=== PATIENT | female | born 1950 | race Caucasian/White ===

== ENCOUNTER 2016-09-28 09:35 | Inpatient (IN) | payer OTHER ==
[~2016-09-28] VITALS: Ht 160 cm; Wt 56.4 kg
[~2016-09-28 09:35] MED LIST: APR20I PO; BG MC; CIPRO500 MG PO; ECO81 PO; ERYOO OD; INSULIN HUMA100 U/M1 SC; LEVEMIR100 U/M1 SQ; LOP50 PO; NOR5 PO; SER25 PO; ZES20 PO; ZOC20 PO
--- NOTE | 2016-09-28 09:50 | NUR ---
PT BIB [facility] WITH C/C OF DISLODGEMENT OF DIALYSIS PORT TO R UPPER CHEST. PORT NOTED TO HAVE BROKEN SUTURES WITH SUTURE HOLES APPROX 3 INCHES AWAY FROM SKIN. PT IS A&O TO PERSON AND PLACE. PT HAS HX OF DEMENTIA AND IS CONFUSED ABOUT DATE AND DISORIENTED ABOUT SITUATION. PT AWARE OF DIALYSIS PORT BEING PULLED BUT STS THAT SHE IS NOT SURE OF HOW THAT HAPPENED. PT FOLLOWS COMMANDS, CLEAR SPEACH. RESP EVEN AND UNLABORED, RA. NO C/O CHEST PAIN, ABD PAIN, OR SOB. PT DENIES PAIN TO PORT SITE, BUT REPORTS PAIN TO BLE AND B/L HIPS. FULL THICKNESS OPEN SORE NOTED TO SACRUM APPROX 2 IN DIAMETER AND DISCOLORED FEET. PT PLACED ON CLASSIFICATION AND TREATMENT DIRECTOR AND PULSE OX
--- NOTE | 2016-09-28 10:20 | NUR ---
DR BIRMINGHAM AT BEDSIDE FOR MSE
--- NOTE | 2016-09-28 10:23 | NUR ---
AUTO RESEARCH ENGINEER AT BEDSIDE FOR BLOOD DRAW
--- NOTE | 2016-09-28 10:34 | NUR ---
EMT AT BEDSIDE FOR EKG
--- NOTE | 2016-09-28 10:40 | NUR ---
RADIOLOGY AT BEDSIDE FOR PCXR
[2016-09-28 10:42] LABS: BASOPHIL % 0.5 % (0-2); PLATELET COUNT 246 x10^3mcL (130-400); RED CELL DISTRIBUTION WIDTH 13.6 % (11.5-14.5)
[2016-09-28 10:53] LABS: BILIRUBIN TOTAL 0.41 mg/dL (0.20-1.00); CALCIUM 8.9 mg/dL (8.5-10.1); CARBON DIOXIDE 31.3 mmol/L (21-32); PHOSPHOROUS 6.4 mg/dL (2.5-4.9); TOTAL PROTEIN, SERUM 6.9 g/dL (6.4-8.2); URIC ACID 4.5 mg/dL (2.6-6.0)
--- NOTE | 2016-09-28 11:01 | NUR ---
PT SLEEPING AT THIS TIME. RESP EVEN AND UNLABORED, RA. PT REMAINS HYPERTENSIVE. BUN/CREATININE CRITICAL, DR BIRMINGHAM MADE AWARE. NAD NOTED
[2016-09-28 11:02] LABS: ALBUMIN 2.7 g/dL (3.4-5.0)
[2016-09-28 11:07] LABS: CREATININE SERUM 5.2 mg/dL (0.6-1.0)
[2016-09-28] MEDS ORDERED: LIPI20 PO (11:18)
[2016-09-28] MEDS ORDERED: HYDRALAZINE HCL25 MG PO (11:18)
[2016-09-28] MEDS ORDERED: PHARMASSURE VI500 MG PO (11:20)
[2016-09-28] MEDS ORDERED: NEPHRO-VITE VITA1 EA PO (11:20)
--- NOTE | 2016-09-28 11:44 | NUR ---
MED STUDENT AT BEDSIDE SPEAKING WITH PT
--- NOTE | 2016-09-28 11:53 | NUR ---
REPORT GIVEN TO ERVIN REED IN [facility]ST FOR CONTINUITY OF CARE
[2016-09-28 12:16] LABS: T3 TOTAL 0.6 ng/mL
[2016-09-28 12:18] LABS: CHOLESTEROL/HDL RATIO 2.2
--- NOTE | 2016-09-28 12:21 | NUR ---
RECEIVED PATEINT FROM ER. ALERT/ORIENTED TO PERSON/PLACE, BUT CONFUSED AT TIMES. PATIENT WAS ESRD, HEMODIALYSIS. PULLED OUT CHET CATH 1 1/2 INCHS OUT FROM RT UPPER CHEST WALL. NO BLEEDING SEEN. TELE# 23 APPLIED. SR WITH BBB. HR = 63. DENIED CHEST PAIN. B/B INCONT. HAD BM TODAY. FORMED STOOL SEEN. GENERAL WEAKNESS. BED BOUND. AIR MATTRESS APPLIED. SKIN PRESSURE INJURY TO COCCYX AREA WITH 2CM TUNNEL. SCANT SEROSANGUINOUS DRAIANGE. WOUND CULTURE COLLECTED. HEALTING STAGE WOUND TO RT FOOT, BUILDING INSPECTOR. PATIENT YELLING AND C/O PAIN OF LEGS ON REPOSITION ONLY. NO C/O PAIN ON RESTING. IVHL'D TO L HAND, CALL LIGHT IN REACH.
[2016-09-28 12:25] LABS: FREE T4 1.08 ng/dL (0.76-1.46); FREE THYROXINE INDEX 2.3 ug/dL (1.4-4.5); T4(THYROXINE) 6.4 ug/dL (4.7-13.3)
[2016-09-28] MEDS ORDERED: PROCARDIA XL90 MG PO (12:30)
[2016-09-28 12:36] VITALS: BP 198/93
--- NOTE | 2016-09-28 16:07 | NUR ---
B/P = 198/93; HR = 65; ORDER OF ADALAT 90MG PO GIVEN. CONTINUE MONITOR.
[2016-09-28 17:23] VITALS: BP 211/90
--- NOTE | 2016-09-28 18:10 | NUR ---
RECHECKED B/P= /; HR = 65' DR. FALCON NOTIFIED. NEW ORDER OF HYDRALAZINE 10MG IVP GIVEN.
--- NOTE | 2016-09-28 19:10 | NUR ---
RECEIVED REPORT FROM DAY SHIFT RN. PT RESTING IN SEMI RIOS'S POSITION. IV ON LEFT HAND, SALINE LOCK. PT SLEEPY BUT AROUSABLE. NO C/O PAIN AT THIS TIME. BREATHING EVEN AND UNLABORED. AIR MATTRESS IN PLACE. SIDE RAILS UP X2. BED IN LOWEST POSITION. DEMONSTRATED HOW TO CALL IF ASSISTANCE IS NEEDED. CALL LIGHT WITHIN REACH.
--- NOTE | 2016-09-28 19:20 | NUR ---
B/P = 139/59 ; P =76. ENDORSED CARE TO NOC NURSE.
[2016-09-28 19:25] VITALS: BP 139/59
[2016-09-28 21:13] VITALS: BP 136/76
--- NOTE | 2016-09-29 03:47 | NUR ---
PT STATES "FEELING ITCHY ALL OVER", MEDICATED WITH BENADRYL X1. WILL CONTINUE TO MONITOR.
--- NOTE | 2016-09-29 04:25 | NUR ---
PT SLEEPING. BREATHING EVEN AND UNLABORED. NO DISTRESS NOTED.
--- NOTE | 2016-09-29 05:06 | NUR ---
PT SLEPT AT SHORT INTERVALS. PT STATES "NOT SLEEPY SINCE SHE SLEPT DURING THE DAY". C/O LEG PAIN ONLY WHEN REPOSITIONING. NO C/O PAIN WHILE AT REST. EPISODES OF CONFUSION. REORIENTED PT. SAFETY MEASURES MAINTAINED. ALL NEEDS ATTENDED TO. CALL LIGHT WITHIN REACH.
[2016-09-29 06:17] VITALS: BP 145/37
[2016-09-29 06:41] LABS: BASOPHIL % 0.9 % (0-2); PLATELET COUNT 241 x10^3mcL (130-400); RED CELL DISTRIBUTION WIDTH 13.9 % (11.5-14.5)
[2016-09-29 07:02] LABS: CARBON DIOXIDE 26.6 mmol/L (21-32); MAGNESIUM 2.1 mg/dL (1.8-2.4); POTASSIUM SERUM 4.1 mmol/L (3.5-5.1)
--- NOTE | 2016-09-29 08:00 | NUR ---
RECEIVED PT IN BED.ASSESSED AND DOCUMENTED. DENIES ANY PAIN THIS TIME. SAFTEY PRECAUTIONS ON. WILL MONITOR. PT IS ON LOW AIR MATTRESS. REPOSITIONING Q2HR.
[2016-09-29 08:34] VITALS: BP 145/37
[2016-09-29 09:22] VITALS: BP 129/66
--- NOTE | 2016-09-29 10:00 | NUR ---
CALLED AND INFORMED ABOUT PHOS LEVEL IS 7 AND ALSO INFORMED HIM PT C/O ITCHING IN THE BACK ,NOT HELPING WITH LOTION. HE SAID HE WILL ORDER MEDICATION. WILL MONITOR.
[2016-09-29 10:12] VITALS: Ht 160 cm; Wt 56.4 kg
[2016-09-29 13:20] VITALS: BP 140/56
--- NOTE | 2016-09-29 14:37 | NUR ---
Initial Nutrition Assessment Dx: Right tunneled catheter dislodgement- ESRD on HD PMHx: diabetes mellitus with neuropathy and retinopathy, alzheimers dementia, CHF, arthirits, HLD, HTN, GERD, ESRD with dialysis (M, W, F at [facility] at 2pm), psychosis, anemia, asthma PSHx: dialysis catheter placement Labs: K+ 4.1, BG 115H, BUN 54H, Cr 6H, Phos 7H, A1C 5.1, H/H 10.7/33L Meds: colace, D50, humulin R, nephro-alyssia, phoslo, theragran, vitamin C 500mg daily, zofran Current Diet Order: Renal (09/28) PO Intakes: 20% B, ?% L (09/29) Ht: 160.02cm,63". Wt: 124lbs, 56.44kg. BMI: 22 kg/m2 (Normal) IBW:115 lb, 52.2 kg. %IBW: 108%. UBW: unable to obtain Age: 66 Y/O F Food Allergies: NKFA Skin: stage IV decubitus ulcer to coccyx, healing wound to RT foot. Luis F:13 Edema: None noted GI:abd soft and flat, bowel sounds active . Last BM:1 formed (09/29) RN Trigger: appears underweight/malnourished, admitted w/ potential risk dx Pt admitted w/ Right tunneled catheter dislodgement- ESRD on HD, seen at bedside w/ no family present, pt was mildly lethargic but open to talk to RD, reports eating lunch but unsure of how much she ate, the RD offered novasource renal to pt, pt was open to drinking, the RD left renal and DM diet educational materials on table, the RD spoke to MILKING MACHINE OPERATOR, reports the pt ate very well for lunch- consumed 100% of tray, the pt is blind and needs max assist w/ feeding, has teeth but likes to eat food chopped in little pieces, no BM during shift- denies other GI issues, did not see any signs of chewing/swallowing difficulty. Problem with: N: None. V: None. D: none. C: None. Problem with: Chewing: None. Swallowing: None. Current Appetite: Good Recent Weight Change: unable to assess. % Weight Change: unable to assess Vitamin/Supplement Use: nephro-alyssia, vitamin C 500mg daily as per paper chart Diet at Home: Mechanical Soft Chopped Renal w/ Nepro 1 can BID w/ lunch and dinner as per paper chart Physical Activity: none Education: none, pt w/ alzheimers dementia Estimated Nutritional Needs Based on CBW 124 lb, 56.44kg Energy: 8784-4491 kcal/day (30-35 kcal/kg for ESRD on HD, Wound Healing) Protein: 85-113 g/day (1.5-2 g/kg for ESRD on HD, Wound Healing) Fluid: output + 750 ml/day (for ESRD on HD, CHF) or per MD Nutrition Diagnosis 1. Increased protein/energy needs related to impaired skin integrity as evidenced by pt w/ stage IV decubitus ulcer to coccyx 2. Inadequate protein/energy intake related to decreased appetite 2/2 general malaise and Alzheimers dementia as evidenced by pt meeting 20-100% of needs Intervention 1. Mechanical Soft Chopped Renal diet w/ CCHO 60gm and Novasource renal (950kcals, 44g protein) BID. Make food preferences known. 2. D/C Theragran. 3. Adjust Phoslo PRN 4. Daily wts to assess trends. Monitor/Evaluate Goal: PO intakes to meet >/= 50-75% of estimated needs via meals and Novasource renal BID Monitor: PO intakes/tolerance, labs, skin integrity, GI function, wt F/U in 3-5 days as MODERATE risk (4-4/)
--- NOTE | 2016-09-29 14:43 | NUR ---
1. Mechanical Soft Chopped Renal diet w/ CCHO 60gm and Novasource renal (950kcals, 44g protein) BID. Make food preferences known. 2. D/C Theragran. 3. Adjust Phoslo PRN 4. Daily wts to assess trends.
--- NOTE | 2016-09-29 15:55 | NUR ---
CALLED AND INFORMED ABOUT COCCYX WOUND CULTURE RESULT. HE SAID HE WILL CHECK.
--- NOTE | 2016-09-29 18:40 | NUR ---
INFORMED ABOUT PT BP 160/62. NO SYMPTOMS OF SEVERE HYPERTENSION NOTED.DENIES HEADACHE. SAID JUST GIVE THE NIGHT BID BP MED AT 1999. [facility] MANA[facility] APPLE NURSE.
[2016-09-29 18:41] VITALS: BP 160/62
--- NOTE | 2016-09-29 19:00 | NUR ---
PT RESTING IN BED COMFORTABLY.DENIES ANY PAIN. GAVE REPORT TO PHLEBOTOMY SPECIALIST NURSE.
--- NOTE | 2016-09-29 19:47 | NUR ---
RECEIVED REPORT FROM DAY SHIFT RN. PT RESTING IN SEMI RIOS'S POSITION. NO DISTRESS NOTED. AIR MATTRESS IN PLACE. SIDE RAILS UP X2. BED IN LOWEST POSITION. IV ON LEFT HAND, SALINE LOCK. CHET CATH PARTIALLY PULLED, COVERED WITH DRESSING. DEMONSTRATED HOW TO CALL IF ASSISTANCE IS NEEDED. CALL LIGHT WITHIN REACH.
[2016-09-29 20:42] VITALS: BP 129/50
[2016-09-30 05:23] VITALS: BP 155/63
--- NOTE | 2016-09-30 06:45 | NUR ---
PT SLEPT AT LONG INTERVALS. NO C/O PAIN AT REST. REORIENTED PT NEEDED. SAFETY MEASURES MAINTAINED. SCD'S IN PLACE. PT REFUSED BLOOD GLUCOSE CHECK THIS MORNING. CALL LIGHT WITHIN REACH. WILL ENDORSE CONTINUITY OF CARE TO ONCOMING RN.
--- NOTE | 2016-09-30 08:00 | NUR ---
RECEIVED PT IN BED.ASSESSED AND DOCUMENTED.DENIES ANY PAIN.ON LOW AIR MATTRESS. GAVE REPORT TO NEXT SHIFT NURSE.
[2016-09-30 09:40] VITALS: BP 147/59
--- NOTE | 2016-09-30 13:00 | NUR ---
CALLED AND INFORMED ABOUT PT REFUSING BLOOD DRAW.RN TALK TO THE PT AND EXPLAINED THE IMPORTANCE OF LAB BUT PT STILL REFUSED. LAB STAFF CAME BACK AND TRY TO TALK TO HER AGAIN BUT SHE STILL REFUSED. DR. FALCON CAME AND TALK TO THE PT MULTIPLE TIME, FINALLY SHE AGREED AND LAB DRAWN BLOOD. ALSO INFORMED IS BEEN RECENTLY RESPONDING REALLY SLOW AND SLEEPY. NO PAIN MEDICATIONS GIVEN BUT CANVAS BASTER JUMPBASTING GAVE HER BATH AND SHAMPOOED HER HEAD. CHECKED PT. WILL CONTINUE MONITOR.
[2016-09-30 13:09] VITALS: BP 151/69
[2016-09-30 14:37] LABS: BASOPHIL % 0.9 % (0-2); PLATELET COUNT 221 x10^3mcL (130-400); RED CELL DISTRIBUTION WIDTH 13.9 % (11.5-14.5)
[2016-09-30 14:44] LABS: CALCIUM 8.8 mg/dL (8.5-10.1); CARBON DIOXIDE 27.5 mmol/L (21-32); MAGNESIUM 2.3 mg/dL (1.8-2.4); PHOSPHOROUS 7.6 mg/dL (2.5-4.9); POTASSIUM SERUM 4.5 mmol/L (3.5-5.1)
--- NOTE | 2016-09-30 14:55 | NUR ---
INFORMED PT'S BUN/CREAT=71/7 AND PHOS 7.6. NO NEW ORDER RECEIVED THIS TIME.
--- NOTE | 2016-09-30 16:50 | NUR ---
INFORMED ABOUT PT REFUSING BLOOD SUGAR. EXPALINED THE PURPOSE AND TRY TO TALK TO PT MULTIPLE TIME BUT PT STILL REFUSING. PT'S MOTHER WAS HERE AND REQUESTED FOR TO CALL AND LET HER KNOW BLOOD SUGAR. CALLED MOTHER AND LEFT MESSAGE,NOT ANSWERED.
--- NOTE | 2016-09-30 17:45 | NUR ---
PT EATING DINNER.AWAKE AND MORE ALERT AND ORIENTED X2 BUT STILL HAS SOME CONFUSION. WILL MONITOR.
[2016-09-30 18:50] VITALS: BP 138/67
--- NOTE | 2016-09-30 19:00 | NUR ---
PT RESTING IN BED COMFORTABLY. DENIES ANY PAIN. SAFTEY PRECAUTIONS ON. GAVE REPORT TO NEXT SHIFT NURSE.
--- NOTE | 2016-09-30 19:30 | NUR ---
RECEIVED REPORT FROM DAY SHIFT RN. SLEEPY BUT AROUSABLE. ORIENTED TO PERSON AND PLACE. REORIENTED TO TIME. IV ON LEFT HAND, SALINE LOCK. AIR MATTRESS AND SCD'S IN PLACE. BED IN LOWEST POSITION. SIDE RAILS UP X2. CALL LIGHT WITHIN REACH.
[2016-09-30 21:52] VITALS: BP 127/93
[2016-10-01] VITALS (7 sets, daily range): BP systolic 139–177; BP diastolic 57–76
[2016-10-01 06:55] LABS: PLATELET COUNT 223 x10^3mcL (130-400); RED CELL DISTRIBUTION WIDTH 14.3 % (11.5-14.5)
--- NOTE | 2016-10-01 07:00 | NUR ---
PT SLEPT ON AND OFF DURING SHIFT. NO C/O PAIN. NO DISTRESS NOTED. CONFUSED AT TIMES, REORIENTED NEEDED. SAFETY MEASURES MAINTAINED. CALL LIGHT WITHIN REACH. WILL ENDORSE CONTINUITY OF CARE TO ONCOMING RN.
[2016-10-01 07:13] LABS: CALCIUM 8.9 mg/dL (8.5-10.1); MAGNESIUM 2.4 mg/dL (1.8-2.4); PHOSPHOROUS 7.6 mg/dL (2.5-4.9); POTASSIUM SERUM 4.6 mmol/L (3.5-5.1)
--- NOTE | 2016-10-01 07:58 | NUR ---
PATIENT IS AWAKE ORIENTED TO PERSON AND PLACE. PULSES EQUAL BILATERAL. NO EDMEA NOTED. LUNGS CTA, PT RESTING ON RA. BOWEL SOUNDS ACTIVE IN ALL 4 QUADRANTS. INCONTINENT AT TIMES. BED BOUND, LEGS CONTRACTED, PAIN ON MOVEMENT. WOUNDS TO COCCYX, AND HEALING WOUND TO R FOOT. NO C/O PAIN AT THIS TIME. IV TO THE LH PATENT AND INFUSING. CALM AND COOPERATIVE AT THIS TIME. CALL LIGHT IN REACH WILL CONTINUE TO MONITOR.
[2016-10-01 08:28] LABS: CREATININE SERUM 7.8 mg/dL (0.6-1.0)
--- NOTE | 2016-10-01 09:48 | NUR ---
LEFT MESSAGE FOR JULIANO PTS DAUGHTER.
--- NOTE | 2016-10-01 09:51 | NUR ---
SPOKE TO PTS SON ELIA, GOT CONSENT VERIFIED WITH TWO RNS.
--- NOTE | 2016-10-01 10:05 | NUR ---
PT OFF THE FLOOR IN PROCEDURE.
--- NOTE | 2016-10-01 12:48 | NUR ---
PT BACK ON THE FLOOR VS STABLE WILL CONTINUE TO MONITOR.
--- NOTE | 2016-10-01 13:37 | NUR ---
INFORMED DR WEBSTER REGARDING PTS PAIN, AWATING ORDERS
--- NOTE | 2016-10-01 14:12 | NUR ---
PT RECEIVED MEDICATION PER. WILL CONTINUE TO MONOTOR PAIN STATUS.
--- NOTE | 2016-10-01 14:15 | NUR ---
PT GETTING DIALIZED.
--- NOTE | 2016-10-01 15:30 | NUR ---
PT GETTING DIALIZED.
--- NOTE | 2016-10-01 17:21 | NUR ---
PT GETTING DIALIZED.
--- NOTE | 2016-10-01 18:09 | NUR ---
ATTEMPTED TO TAKE PTS BP PT PULLED AWAY AND SAID NO WILL TRY AGAIN.
--- NOTE | 2016-10-01 18:37 | NUR ---
DR WEBSTER MADE AWARE OF PTS SWELLING TO BUE AND BLE. STATED TO DC FLUIDS.
--- NOTE | 2016-10-01 18:53 | NUR ---
PT RESTING COMFORTABLY IN BED NO ACUTE CHANGES, PT ABLE TO MAKE NEEDS KNOWN. EVEN UNLABORED RESPIRATIONS. NO ACUTE CHANGES. WILL ENDORCE TO ILLUSIONIST NURSE.
--- NOTE | 2016-10-01 20:00 | NUR ---
RECEIVED PT IN BED AWAKE, ALERT AND ORIENTED X2. PT IS CONFUSED AT TIMES. WEAK PEDAL PULSES , NO EDEMA NOTED. LUNGS CLEAR AND ON ROOM AIR. BOWEL SOUND ACTIVE. PT IS HD PATIENT AND VOIDS VERY LITTLE. PT IS BED BOUND WITH GENERALIZED WEAKNESS. AIR MATTRESS IN PLACE. RIGHT LEG CONTRACTED. STAGE 4 TO THE COCCYX AREA. WOUND CLEANSED AND DRESSING CHANGED. NO C/O PAIN NOTED AT THIS TIME. TUNNELED CATH NOTED TO THE RIGHT UPPER CHEST. CLEAN DRY AND INTACT. IV HL TO THE LEFT HAND 22G, NO SWELLING OR INFILTRATION NOTED. NO ACUTE DISTRESS NOTED. RESPIRATIONS EVEN AND UNLABORED. NO C/O SOB NOTED. INSTRUCTED PT TO USE CALL LIGHT IF NEEDS ASSISTANCE WITH ANYTHING. CALL LIGHT WITHIN REACH. WILL CONTINUE TO MONITOR.
--- NOTE | 2016-10-01 23:40 | NUR ---
PT SLEEPING AT THIS TIME. NO DISTRESS NOTED. NO SIGNS OF PAIN. IV INTACT. WILL CONTINUE TO MONITOR PT.
--- NOTE | 2016-10-02 02:30 | NUR ---
NO DISTRESS NOTED. PT RESTING COMFORTABLY AT THIS TIME. WILL MONITOR.
[2016-10-02 05:31] VITALS: BP 174/72
--- NOTE | 2016-10-02 05:53 | NUR ---
PT CONTINUES TO REST IN BED AT THIS TIME. NO DISTRESS NOTED. IV INTACT. NO REDNESS OR SWELLING NOTED. PT STABLE AT THIS TIME. WILL ENDORSE TO THE A.M SHIFT NURSE.
[2016-10-02 05:54] LABS: PLATELET COUNT 215 x10^3mcL (130-400)
[2016-10-02 06:13] LABS: CALCIUM 8.5 mg/dL (8.5-10.1); CARBON DIOXIDE 28.7 mmol/L (21-32); MAGNESIUM 1.8 mg/dL (1.8-2.4); PHOSPHOROUS 5.1 mg/dL (2.5-4.9); POTASSIUM SERUM 3.5 mmol/L (3.5-5.1)
[2016-10-02 06:21] LABS: CREATININE SERUM 4.5 mg/dL (0.6-1.0)
--- NOTE | 2016-10-02 06:59 | NUR ---
NITROGLYCERIN GIVE TO PATIENT AT THIS TIME FOR BP OF 174/72 WILL ENDORSE TO THE A.M SHIFT AND BP WILL BE MONITORED. EDUCATED PT REGARDING THIS MEDICATION AND PT VERBALIZES AN UNDERSTANDING.
--- NOTE | 2016-10-02 09:06 | NUR ---
ADMINISTERED MORNING MEDICATIONS TO PT, OPENED THE MEDICATIONS AND PUT IN MEDICINE CUP, PT TOOK KAREN HALF OF MEDICATIONS AND THEN BEGAN YELLING SAYING HER WATER WAS FROZEN AND SHE WANTED HOT WATER. WILL TRY AND FINISHED ADMINISTERING THE REST OF MORNING MEDICATIONS.
[2016-10-02 09:38] VITALS: BP 180/77
[2016-10-02 11:23] VITALS: BP 171/57
--- NOTE | 2016-10-02 11:27 | NUR ---
GAVE THE PT THE REST OF HER MORNING MEDICATIONS, WILL REASSESS BLOOD PRESSURE.
[2016-10-02 12:17] VITALS: BP 174/64
--- NOTE | 2016-10-02 12:48 | NUR ---
CONSENT WAS OBTAINED FROM PTS SON ELIA THOMAS, CONSENT WAS OBTAINED OVER THE PHONE, VERIFIED WITH ANOTHER RN, CONSENTS SIGNED AND IN THE CHART.
[2016-10-02 17:00] VITALS: BP 140/60
--- NOTE | 2016-10-02 17:45 | NUR ---
PHOTOS PRINTED FROM DEBRIDEMENT, DR WEBSTER MADE AWARE OF NEED FOR SIGNATURE.
--- NOTE | 2016-10-02 19:10 | NUR ---
CARE ENDORCED TO RN INTERNATIONAL NURSE, NO ACTE CHANGES PT STABLE.
--- NOTE | 2016-10-02 19:30 | NUR ---
RECEIVED BEDSIDE REPORT. SEEN PATIENT ASLEEP ON HER LEFT SIDE. BREATHING EASY AND EVEN NOTED ON ROOM AIR. S/P WOUND DEBRIDEMENT TO COCCYX AT PREVIOUS SHIFT. CHET CATH TO RIGHT CHEST WALL WITH DRSG CDI. S/L TO LT HAND INTACT. ON AIR MATTRESS. BED RIDDEN, LEGS CONTRACTED. WILL CONTINUE REPOSITION Q 2HRS. ON CONTACT ISOLATION FOR MDRO. BED ALARM ON. CALL LIGHT PLACED WITHIN REACH. SIDERAILS UP X3. WILL CONTINUE TO MONITOR.
--- NOTE | 2016-10-02 19:31 | NUR ---
ENDORCED TO TRACTOR TRAILER TECHNICIAN NURSE THAT PT WOULD BE GETTING HD TOMORROW, AND THAT WOUND DEBRIDEMENT HAD BEEN DONE TODAY AND DRESSING CHAGE IS NEW.
[2016-10-02 22:00] VITALS: BP 127/58
--- NOTE | 2016-10-02 23:00 | NUR ---
AWAKE AND WANTED TO USE THE BATHROOM NOTED PATIENT INCONTINENCE URINE TO ABSORBANT PAD, ADRYAN AREA CLEANED AND LINEN CHANGED. ASSISTED WITH DINNER, ABLE TO FINISH 100% OF RENAL DIET. FORGETFUL AT TIMES, PLEASANT AT THIS TIME. BED TIME MEDS GIVEN. REPOSITIONED. DRESSING TO COCCYX CDI.
--- NOTE | 2016-10-03 05:21 | NUR ---
NO ACUTE DISTRESS THROUGHOUT THE SHIFT. VSS. ULTRAM PO GIVEN X1 FOR NECK PAIN WITH GOOD RELIEF. INCONTINENCE URINE, VOIDED X1. DUE FOR HEMODIALYSIS TODAY. CHET CATHETER TO RIGHT CHEST WALL WITH DRSG CDI. REPOSITIONED Q 2HRS. S/L TO LT HAND INTACT AND PATENT.
[2016-10-03 06:19] VITALS: BP 137/57
--- NOTE | 2016-10-03 06:47 | NUR ---
PATIENT REFUSED AM BLOOD DRAW AND DOCTOR TERRIE MADE AWARE.
[2016-10-03 07:34] LABS: CALCIUM 8.7 mg/dL (8.5-10.1); CARBON DIOXIDE 29.8 mmol/L (21-32); MAGNESIUM 2.1 mg/dL (1.8-2.4); PHOSPHOROUS 6.8 mg/dL (2.5-4.9); POTASSIUM SERUM 3.6 mmol/L (3.5-5.1)
[2016-10-03 07:36] LABS: CREATININE SERUM 5.7 mg/dL (0.6-1.0)
[2016-10-03 07:40] LABS: BASOPHIL % 1.5 % (0-2); PLATELET COUNT 208 x10^3mcL (130-400); RED CELL DISTRIBUTION WIDTH 13.6 % (11.5-14.5)
--- NOTE | 2016-10-03 08:00 | NUR ---
RECEIVED PATIENT AWAKE AND VERY SHORT WITH STAFF AND ALMOST PARANOID DOUNDING. SHE WANTS TO KNOW WHY THE NURSE IS AT BEDSIDE AND SHE HAS INTERMITTANT PAIN AAND SHE FEELS THE STAFF SHOULD KNOW THIS AND GIVE THE MEDICAIONS ORDERED. PATIENT HAS BEEN AGIATED SINCE STAFF ARRIVE AND DOES NOT APPEAR TO HAVE ALL HER MEMORY INTACT AND IS FORGETFUL OF WHERE SHE IS AND SHE HAS BEEN COMPLAINING PEOPLE ARE NOT TALKING LOUD ENOUGH FOR HER TO HEAR AND THAT SHE FEELS THAT PEOPLE ARE DIRECTING THEMSELVES TO HER. VITALS AT THIST GIACOMO AT 98.5, 59, 18, 137/57, 96% ON ROOM AIR. PATIENT HAS BEEN ON HHN TREATMENTS AND LUNGS ARE WITH SOME FINES AND NO COUGH NOTED AND PATIENT HAS BEEN ON ROCPHEIN AND NO ADVSER REACTION NOED. NOTED LABS ARE WITH H AND H OF 9.5/29, LYMPH21.4, BUN AT 45.0, CREANTININES AT 5.7.
--- NOTE | 2016-10-03 08:30 | NUR ---
SEEN BY THE INTERNS AND DR ELDER AND PLAN OF CARE DISCUSSED. PATIENT IS FOR [facility] EVAL AND POSSIBLE DISCHARGE TO SNF TOMORROW. PATEITN FOR DIALYSIS TODAY PER REPORT. HELD THE BP MEDICAIOTNS INDICATED.
--- NOTE | 2016-10-03 09:40 | NUR ---
REQUESTED PAIN MEDICATION BUT IS NOT ACCEPTING ALL MEDICATIONS AT THIS TIME. SHE AGREED TO TAKE ONLY FOUR OF THE MEDICATIONS OFFERED WITH THE PAIN MEDICATION ULTRAM. GAVE ULTRAM ORDERED FOR HIP PAIN AND WILL MONITOR FOR EFFECTIVENESS. PATIENT HAS HER BP MEDICATION ON HOLD PER REPORT FOR POST DIALYSIS
[2016-10-03 09:45] VITALS: BP 145/58
--- NOTE | 2016-10-03 09:54 | NUR ---
SEEN BY THE INERNS AND PLAN OF CARE DISCUSSED.
--- NOTE | 2016-10-03 11:30 | NUR ---
PATIENT REFUSED BLOOD SUGAR TESTING AND THEN SHE REFUSED THE MEDICATIONS ALSO. SHE DOES NOT SEEM TO BE PARTICULAR ON HER REASONS FOR REFUSAL. THIS TIME SHE STATES SHE DOES NOT WANT TO TAKE MEDICATIONS ON AN EMPTY STOMACH. EARLIER SHE DID NOT WANT TO TAKE SO MANY.
--- NOTE | 2016-10-03 13:45 | NUR ---
GAVE THE MEDICATION LEFT OVER FROM THE AM AND THE NOON MEDICATIONS SHE HAD REFUSED EARLIER TO TAKE. PATIENT NOW WANTS ICELANDIC FRIES. STAFF IS SURE THIS IS NTO PART OF THE RENAL DIABETIC DIET. WILL REQUEST ON THE PATIENTS BEHALF DESPITE A REFUSAL IS EXPECTED BY THE DIETARY DEPTMENT.
--- NOTE | 2016-10-03 13:53 | NUR ---
REQUESTED RENAL/DIABETIC DIET SNACK FOR THE PATIENT.
--- NOTE | 2016-10-03 13:54 | NUR ---
GAVE THE ROUND THE CLOCK PAIN MEDICATION AND STARTED THE ANCEF TWO GRAMS ORDERED. FAMILY AT BEDSIDE AND SUPPORTIVE WITH CARE.
--- NOTE | 2016-10-03 16:30 | NUR ---
PATIENT ON DIALYSIS AT THIS TIME. PATIENT COMPLAINS OF ITCHNESS AND MEDICATION GIVEN AND EFFECTIVE.
[2016-10-03 17:45] VITALS: BP 163/65
--- NOTE | 2016-10-03 19:40 | NUR ---
REC'D PT FROM DAY SHIFT NURSE. PT AAOX3, REORIENTED TO TIME AND SURROUNDINGS. FORGETFUL. ABLE TO VERBALIZE NEEDS. FOLLOWS COMMANDS. GENERALIZED WEAKNESS WITH LIMITED ROM TO RLE. DIALYSIS TAKING PLACE. 1.6 L OUT VIA CHET TO R UPPER CHEST, SITE WNL. NO COMPLAINTS AT THIS TIME, "JUST TIRED OF LAYING HERE." NO SIGNS OF DISTRESS NOTED. BREATHING EVEN/UNLABORED. MED SURG PT- DENIES CP, DIZZINESS, OR PALPITATIONS. CALL LIGHT WITHIN REACH, BED AT LOWEST POSITION, BED ALARM ON. WILL CONTINUE TO MONITOR.
--- NOTE | 2016-10-03 19:47 | NUR ---
CONTINUED ON DIALYSIS AND PLANS TO REMOVE 1.5 LITERS TODAY. PATIENT CALM AT THIS TIME. WILL ENDORSE TO THE NEXT SHIFT INDICATED. DID NOT RECEIVE THE BP MEDICATIONS DIRRECTED OR RECEIVE THE ROCPHIN.
[2016-10-03 20:44] VITALS: BP 183/76
--- NOTE | 2016-10-03 21:00 | NUR ---
DIALYSIS COMPLETED. PT TOLERATED WELL. BP ELEVATED 183/76, MAP 118, HR 73. WILL GIVE DUE ANTIHYPERTENSIVE MEDS.
--- NOTE | 2016-10-03 21:47 | NUR ---
DUE MEDS GIVEN. PT STATED SHE WANTS TO LEAVE AFTER EATING DINNER. INFORMED PT SHE HAS JUST COMPLETED DIALYSIS AND IT ISN'T SAFE FOR HER TO LEAVE RIGHT NOW. SHE WILL NEED TO STAY AT LEAST ONE MORE NIGHT AND DOCTORS WILL INFORM HER IN THE MORNING IF SHE WILL GET DISCHARGED. PT KEPT INSISTING SHE WILL GO HOME TONIGHT. REINFORCED SHE NEEDS TO STAY FOR OBSERVATION. PT VERBALIZED UNDERSTANDING AND IS WATCHING TV, LAYING COMFORTABLY IN BED. WILL CONTINUE TO MONITOR
--- NOTE | 2016-10-04 03:20 | NUR ---
PT RESTING IN BED WITH EYES CLOSED. LAYING LOW RIOS'S POSITION. NO SIGNS OF DISTRESS NOTED. BREATHING EVEN/UNLABORED. CALL LIGHT WITHIN REACH, BED AT LOWEST POSITION. WILL CONTINUE TO MONITOR.
[2016-10-04 06:08] LABS: PLATELET COUNT 211 x10^3mcL (130-400); RED CELL DISTRIBUTION WIDTH 13.8 % (11.5-14.5)
[2016-10-04 06:16] VITALS: BP 192/74
[2016-10-04 06:40] LABS: CALCIUM 8.8 mg/dL (8.5-10.1); CARBON DIOXIDE 30.7 mmol/L (21-32); CREATININE SERUM 3.3 mg/dL (0.6-1.0); MAGNESIUM 1.9 mg/dL (1.8-2.4); PHOSPHOROUS 4.3 mg/dL (2.5-4.9); POTASSIUM SERUM 3.7 mmol/L (3.5-5.1)
--- NOTE | 2016-10-04 06:41 | NUR ---
PT AGITATED. INITIALLY REFUSING LAB TO DRAW BLOOD. SPOKE TO PT AND ALLOWED LAB DRAW BUT STATED SHE WOULD "SLUG" THE PHLEBOTIMIST IF "SHE HURT HER." REINFORCED THAT WE ARE HERE TO HELP HER, NOT HURT HER. BP HIGH AT 192/74, MAP 153, HR 68. NITRO GIVEN. CANNOT GIVE HYDRALIZE IVP BC PT IS NOT ON TELE. RECHECKED BP AFTER NITRO- BP 197/69, MAP 144, HR 67. APRESOLINE PO GIVEN EARLY. NOT ABLE TO INFORM DR FALCON CLASS HAS STARTED ALREADY. NO COMPLAINTS OF PAIN AT THIS TIME OTHER THAN SOME PAIN TO ARM WHERE LAB DALI. DENIES THORNE, DIZZINESS, OR OTHER DISCOMFORT. NO SIGNS OF DISTRESS. BREATHING EVEN/UNLABORED. WILL ENDORSE TO DAY SHIFT NURSE.
--- NOTE | 2016-10-04 08:00 | NUR ---
RECEIVED PATIENT CONFUSED AND DISORIENTED AND SHE IS STATING THING IMAPPROPRIATELY AT THIST GIACOMO. NICOLESKYLARELODIA STATES HER LEG IS BROKEN AND IT IS NOT. SHE HAS REMOVED HER RESPIRATORY TREATMENT WTIHOUT IT BE MUCH LITTLE STARTED RATHER THAN COMPLETED. SHE HAS BEEN ON AND OFF REFUSING MEDICAITONS AND SHE HAS BEEN EVEN SUGGESTING SHE DOES NOT WANT THE JOSE RAFAEL CATH THAT WAS REPLACED DUE TO HER PULLING IT ALMOST OUT. LUGN ARE DIMINSIEHD AND BOWEL SOUNDS ARE HYPOATCIE. OFFERED DIET AND ASSISTED IDNICATED. SHE HAS BEEN WITH NO PLIN AT THIS TIME. ENCOURAGE DIET AND FLUIDS ORDERED. PATIENT IS IN ISOLATION FOR MDRO. CONTINUED ON ROCEPHIN AND NO ADVERSE REACTION. HAD DIALYSIS LAST NIGHT AND REMOVED 1.5 LITERS. WILL CONTINUE DTO REORIENT INDICATED AND ENCOURAGE COMPLIANCE WITH MEDICATIIONS AND PLAN OF CARE. VITALS AT THIS TIME AT 99.6, 57, 18, 179/87, 98 ON ROOM AIR. LAST BLOOD SUGAR WAS AT 125 AND NO COVERAGE WAS INDICATED.
--- NOTE | 2016-10-04 09:30 | NUR ---
SEEN BY THE INTERNS AND DR ELDER AND PLAN OF CARE DISCUSSED.
--- NOTE | 2016-10-04 09:53 | NUR ---
0800: WOUND CARE EVALUATION NOTES: REASON FOR EVALUATION: SACRAL DECUBITUS ST IV COMPLETE SKIN ASSESSMENT DONE ON THIS 66 Y/O FEMALE PATIENT FROM [facility] TO [facility], WITH INITIAL DIAGNOSIS OF RENAL FAILURE AND PARTIALLY PULLED OUT CHET CATH. PAST MEDICAL HISTORY INCLUDE DM, ALZHEIMER'S DEMENTIA, CHF, ARTHRITIS, HYPERTENSION AND ESRD. ALL ABOVE INFORMTATION WAS OBTAINED FROM THE ADMISSION H&P. LABS ARE WBC 6.6, H/H 9.4/29, GLUCOSE 125, ALBUMIN 2.7, PT/INR 10.8/1.0 AND PTT 31.8. CURRENT MEDS INCLUDE TRAMADOL, CEFTRIAXONE, VIT B COMPLEX, ASCORBIC ACID AND INSULIN. PATIENT IS AWAKE, ORIENTED X3 AND ABLE TO FOLLOW SIMPLE COMMANDS. SKIN WARM TO TOUCH WNL, TOENAILS ARE DISCOLORED AND SLIGHTLY THICKENED, NO EDEMA, FINE HAIR GROWTH AND +2 BILATERAL PEDAL PULSES. HEAVY SCARRING NOTED ON THE RIGHT HIP. URINE AND BOWEL INCONTINENT. RIGHT SUBCLAVIAN WITH DRESSING NOTED, DRY AND INTACT. ABLE TO TURN SELF WITH MINIMAL ASSISTANCE. INITIAL PLAN OF CARE AND PRESSURE PREVENTIVE MEASURES DISCUSSED, ABLE TO VERBALIZE UNDERSTANDING. INTEGUMENTARY: COCCYX - ST IV - 100% DUSKY RED. PW RED RIGHT LATERAL METATARSAL HEAD - DIABETIC ULCER - 100% BROWN ESCHAR RECOMMENDATIONS: -CLEANSE COCCYX WITH NS AND GAUZE, PAT DRY, APPLY THERAHONEY GEL, COVER WITH GAUZE AND DRY DRESSING DAILY AND PRN WITH SOILING -PAINT RIGHT LATERAL METATARSAL HEAD WITH BETADINE BID AND LEAVE OPEN TO AIR -TURN AND REPOSITION PATIENT TO LEFT AND RIGHT SIDE ONLY TO OFFLOAD SACRALCOCCYX -ASSESS AND MONITOR SKIN CONDITION DURING POSITION CHANGE, PLEASE PAY PARTICULAR ATTENTION TO SACRALCOCCYX, ELBOWS AND HEELS -OFFLOAD BILATERAL HEELS BY PLACING PILLOWS UNDER CALVES AT ALL TIMES, UNLESS OTHERWISE CONTRAINDICATED -PRESSURE REDISTRIBUTION SURFACE THERAPY IN PLACE -KEEP SKIN CLEAN AND DRY AT ALL TIMES. RECOMMENDATIONS DISCUSSED WITH PRIMARY RN AND RESIDENT PHYSICIAN, DR. WEBSTER WILL FOLLOW UP PATIENT Q 7 DAYS AND PRN. PLEASE CONTACT [facility] FOR ANY CONCERNS, QUESTIONS AND CHANGES IN SKIN CONDITION. TO TURN SELF WITH ASSISTANCE.
[2016-10-04 10:53] VITALS: BP 166/52
--- NOTE | 2016-10-04 11:22 | NUR ---
APPROXIMATELY 20 MINUTES THE STAFF ATTEMPTED TO GET THE PATIENT TO TAKE HER MORNING MEDICATIONS. SHE DID NOT REFUSED BUT WANTS TO GO TO THE RESTROOM. SINCE SHE IS IN DENIAL ABOUIT HER ABILTY TO WALK AND IS WITH CONTRACTED LOWER EXTREMITIES STAFF OFFERED AND EXPLAINED THE RATIONAL FOR A BEDPAN. SHE HAD THE NURSE JUMPING FROM ONE SIDE OF THE BED TO ANOTHER IN ATTEMPTS TO POSITION FOR THE BEDPANS USE. SHE JUST KEPT INSISTING SHE CAN WALK AND GET TO THE RESTROOM. PATIENT HAS ALSO BEEN WITH MINIMAL TO NO OUTPUT DUE TO RENAL AND DIALSYS. SHE IS NOW ASKING FOR PIZZA AND TO CLOSE THE PATEO DOOR. WILL REORIENT INDICATED. IN THE MEANTIME SHE HAS NOT TAKEN HER MEDICATIONS INDICATED. VITALS SHOW ELEVATED BP MINIMAL TO NO URINE OUTPUT AND WITH CONFUSION AND DELUSIONAL BEHAVIORS.
--- NOTE | 2016-10-04 13:05 | NUR ---
SITTING UP AND EATTING AND WAS COOPERATIVE WITH SOAKER MEAT FOR CLEANING UP AND POSITIONING. WILL OFFER AGAIN THE MORNING MEDICCAIONS. PATIENT HAS BEEN RESISTANT BUT DID AGREE FOR BLOOD SUGAR TESTING AND THE SUGAR WAS 149 AND ON COVERAGE INDICATED.
--- NOTE | 2016-10-04 15:45 | NUR ---
TOOK THE MORNING MEDICATIONS WITH THE AFTERNOON MEAL. APTIENT IS SLEEPING AT THIS TIME AND NO INDICATION OF DISTRESS. ENCOURAGED COMPLIANCE WITH CARE AND REORIENTED INDICATED.
--- NOTE | 2016-10-04 17:01 | NUR ---
P.T. NOTES/INITIAL EVAL [id number] Pt WAS ADMITTED DUE TO RENAL FAILURE; Pt LIVES IN SNF, ASSISTED IN ADLs & MOBILITY; H/O (R)LAT MT HEAD CHRONIC DIAB ULCER, TUNNEL CATH REVISION, SACRAL DECUB ULCER. S:Pt WAS SEEN AWAKE & ALERT IN BED, SPEAKS RWANDAN, FORGETFUL, ORIENTED TO SELF & PLACE, CONFUSED AT TIMES, ABLE TO FOLLOW SIMPLE COMMANDS, AGREEABLE & COOPERATIVE W/ P.T.; DEMO GEN BODY SORENESS; NO C/O DIZZINESS AT THIS TIME; STATES SHE WALKED TO THE BATHROOM EARLIER; TALKATIVE, EASILY DISTRACTED. O:BED MOBILITY: MAX/MOD ASSIST+2 PERSONS IN SUPINE TO SIT TRANSFERS: UNABLE GAIT: UNABLE; (B)LE FLEXION TIGHTNESS/CONTRACTURES Pt SALIMA SITTING UP SIDE OF BED ~18 MINUTES W/ MOD SUPPORT; ASSISTED TO BED SAFELY; HOB ELEVATED, BED ALARM ON; CALL HOWE, PHONE, TABLE IN REACH; ON ROOM AIR; APPRECIATIVE. A:Pt DEMO GOOD RESPONSE TO P.T. SESSION; FALL RISK, DIALYSIS; DEMO POOR SAFETY AWARENESS; Pt EDUC ON SAFE MOBILITY, HEP, USE OF CALL LIGHT FOR NURSE ASST, NEEDS REINFORCEMENT. P:CONT PT ONCE DAILY 5X/WK X 1 WK, TRIAL BASIS; POC & DX DISCUSSED W/ SUPERVISOR SHIPPING. EVAL23,2PA GCODES:[id number] [facility] REACH SCORE:16 inches [id number] Pt WAS GIVEN THERA EXER UE/LE X 10 REPS; CONT PT EX8
--- NOTE | 2016-10-04 17:55 | NUR ---
PATIENT REFUSED THE INSULIN WHEN OFFERED FOR BLOOD SUGAR OF 197, PATIENT HAS ALSO REFUSED AND CAN COME BACK LATER TO GIVE THE IVPB ANTIBIOTIC. PATIENT HAS BEEN DELUSIONAL AND AT TIMES SHE HALUCINATES. SHE STATES SHE IS IN PAIN AND OFFERED ULTRAM ORDERED. SET UP FOR DINNER AND WILL ATTEMPT TO START THE ANTIBIOTICS POST THE MEAL.
--- NOTE | 2016-10-04 18:31 | NUR ---
PATIENT AGREED TO HAVE THE IV NOW FOR HER ANTIBIOTIC. SHE IS COMBATIVE THOUGH WITH THE MOBILE UI DEVELOPER WHEN SHE IS TRYING TO STRAIGHTEN HER UP POST THE MEAL. PATIENT IS ANXIOUS AND CAN BE AGRESS AND DOWN RIGHT VERBAL AND PHYSICALY ABUSIVE. ENCOURAGED COMPLIANCE WITH CARE. ADVISING THE STAFF IS HERE TO HELP HER GET WELL.
--- NOTE | 2016-10-04 19:10 | NUR ---
REC'D PT FROM DAY SHIFT NURSE. PT AAOX2. REORIENTED TO AGE, TIME, PLACE, AND SURROUNDINGS. CONFUSED- PT ASKING ME TO PUT STUFF IN THE DRYER BEHIND CURTAIN AND SAYING SHE HAS FOUR FEET. PT DENIES PAIN AT THIS TIME. NO SIGNS OF DISTRESS OR SOB. BREATHING EVEN/UNLABORED. LAST HD 4/5- 1600 ML OUT VIA CHET CATH TO R UPPER CHEST, SITE WNL . DRESSING TO SACRUM CDI, DIABETIC ULCER CAM. ON LOW AIR MATTRESS. LAYING SUPINE. CONTRACTURES TO BLE. CALL LIGHT WITHIN REACH, BED AT LOWEST POSITION, BED ALARM ON. WILL CONTINUE TO MONITOR.
[2016-10-04 22:04] VITALS: BP 190/73
[2016-10-05 00:35] VITALS: BP 120/47
[2016-10-05 06:33] VITALS: BP 134/63
--- NOTE | 2016-10-05 06:54 | NUR ---
PT RESTING COMFORTABLY IN BED. REMAINS CONFUSED. CALM AND PLEASANT AT THIS TIME. BS 149, NO COVERAGE NEEDED. VSS. NO SIGNS OF DISTRESS NOTED. BREATHING EVEN/UNLABORED. BETADINE APPLIED TO RLE DIABETIC ULCER AND LEFT DIABETES SPECIALIST. DIALYSIS SCHEDULED FOR THIS MORNING. NO SIGNIFICANT CHANGES DURING SHIFT. WILL ENDORSE TO DAY SHIFT NURSE.
--- NOTE | 2016-10-05 07:57 | NUR ---
PT RECEIVED DURING CHANGE OF SHIFT, A/OX3, IMPAIRED SHORT TERM MEMORY, CONFUSED AT TIMES, NO TELE, DENIES CHEST PAIN, PULSES PRESENT NO EDEMA, LUNGS CTA ON RA, DENIES SOB, BREATHING EVEN AND UNLABORED, BOWEL SOUNDS PRESENT, DENIES N/V, INCONTINENT OF URINE AT TIMES, RECEIVES HD TX, NEXT SCHEDULED HD TX 10/05/16, CHET CATH TO RT UPPER CHEST, GENERALIZED WEAKNESS, LOW AIR MATTRESS, BLE CONTRACTURE, SACRAL ULCER WITH DRESSING CDI, RLE DIABETIC ULCER EMBALMER/FUNERAL DIRECTOR, DENIES ANY PAIN AT THIS TIME, IV TO LH SALINE LOCKED, CURRENTLY CALM AND COOPERATIVE, CALL LIGHT WITHIN REACH, WILL CONTINUE TO MONITOR.
--- NOTE | 2016-10-05 08:04 | NUR ---
DR. ELDER AND RESIDENTS MAKING ROUNDS PLAN OF CARE DISCUSSED.
[2016-10-05 09:55] VITALS: BP 168/71
--- NOTE | 2016-10-05 09:58 | NUR ---
PT DENIES SOB, DENIES PAIN, MED EDUCATION GIVEN, CALL LIGHT WITHIN REACH, WILL COTNINUE TO MONITOR.
--- NOTE | 2016-10-05 10:34 | NUR ---
PT DENIES PAIN, DENIES SOB, CALL LIGHT WITHIN REACH, WILL CONTINUE TO MONITOR.
--- NOTE | 2016-10-05 11:13 | NUR ---
PT DENIES PAIN, DENIES SOB, BS 171, CALL LIGHT WITHIN REACH, WILL CONTINUE TO MONITOR.
[2016-10-05] MEDS ORDERED: ROC1I IV (11:15)
[2016-10-05] MEDS ORDERED: BD LACTINEX1.4 MG PO (11:16)
[2016-10-05 11:40] VITALS: BP 168/71
--- NOTE | 2016-10-05 12:32 | NUR ---
SPOKE WITH RN AT [facility], REPORT GIVEN, ALL QUESTIONS ANSWERED, FACILITY NUMBER GIVEN.
--- NOTE | 2016-10-05 12:42 | NUR ---
TELEPHONE CONSENT RECEIVED FOR PT FROM [facility]OM[facility] ELIA.
--- NOTE | 2016-10-05 13:23 | NUR ---
PT'S IV DC'D, ARMBANDS TAKEN OFF, THERAHONEY AND NEW GAUZE APPLIED TO [facility], [facility]SPORT[facility] TAKING PT TO [facility] [place].
--- NOTE | 2016-10-05 13:48 | NUR ---
PT NOTES TIME [id number] S: CLEARED BY RN FOR P.T. TX. PATIENT IS AWAKE & ALERT IN A SEMI RIOS POSITION IN BED. AGREEABLE TO P.T. TX. NO C/O PAIN OR DIZZINESS AT THIS TIME. PATIENT IS CONFUSED. O: VITALS AT REST BP 168/71, HR 66 BPM, SPO2 ON RA 96% BED MOBILITY: SUPINE<>SIT VIA LOGROLL W/ MOD ASSIST. PATIENT RETROLEANS IN SITTING. PATIENT REQUIRES TC/VC TO CORRECT COG FORWARD. IN SITTING PATIENT WT. SHIFTING ACTIVITIES. ADDITIONAL VC GIVEN TO USE SIDERAILS TO ASSIST FOR BED MOBILITY. RESISTED WT. SHIFTING TECHNIQUES TO FACILITATE & RECRUIT POSTURAL MUSCLES. PATIENT ABLE TO SALIMA. SITTING UP AT EOB FOR 25 MINS. TRANSFER: ATTEMPTED SIT<>STAND W/ FWW TOTAL ASSIST OF 2, BUT UNABLE. PATIENT HAS BILAT LE IN KNEE FLEX CONTRACTURE. PATIENT UNABLE TO LIFT BUTTOCKS OFF THE BED EVEN W/ TOTAL ASSIST OF 2. THER EX PROM/AAROM ANKLE DF/PF, SHOULDER FLEXION, ELBOW FLEX/EXT, SHOULDER HORIZ. ABD/ADD X 10 REPS. PATIENT IS SAFELY & COMFORTABLY IN A SEMI RIOS POSITION IN BED W/ CALL BUTTON & TABLE IN REACH. BED ALARM ON. AIR MATTRESS ON. RN NOTIFIED. P: DISCUSSED W/ PRIMARY PHYSICAL THERAPIST [id number]',[id number]'
== END 2016-10-05 13:28 | DRG 981 ==
LOC: ED 09:35 → DU 11:30 → MU 11:30 → DU 12:14 → MU 10-01 07:01
PROVIDERS: Emergency Medicine; Family Medicine; Surgery; ADMIT Family Medicine
PROC: 02HV33Z Insertion of Infusion Device into Superior Vena Cava, Percutaneous Approach (ICD-10-PCS; 2016-10-01)
PROC: B5181ZA Fluoroscopy of Superior Vena Cava using Low Osmolar Contrast, Guidance (ICD-10-PCS; 2016-10-01)
PROC: 02PY33Z Removal of Infusion Device from Great Vessel, Percutaneous Approach (ICD-10-PCS; principal; 2016-10-01 10:30)
PROC: 0QB10ZZ Excision of Sacrum, Open Approach (ICD-10-PCS; 2016-10-02)
DX: T82.42XA Displacement of vascular dialysis catheter, initial encounter (principal); N17.0 Acute kidney failure with tubular necrosis; I50.43 Acute on chronic combined systolic (congestive) and diastolic (congestive) heart failure; E43 Unspecified severe protein-calorie malnutrition; G93.41 Metabolic encephalopathy; N18.6 End stage renal disease; L89.154 Pressure ulcer of sacral region, stage 4; I13.2 Hypertensive heart and chronic kidney disease with heart failure and with stage 5 chronic kidney disease, or end stage renal disease; G30.9 Alzheimer's disease, unspecified; F02.80 Dementia in other diseases classified elsewhere, unspecified severity, without behavioral disturbance, psychotic disturbance, mood disturbance, and anxiety; L08.89 Other specified local infections of the skin and subcutaneous tissue; B96.4 Proteus (mirabilis) (morganii) as the cause of diseases classified elsewhere; I35.0 Nonrheumatic aortic (valve) stenosis; J45.909 Unspecified asthma, uncomplicated; K21.9 Gastro-esophageal reflux disease without esophagitis; M19.90 Unspecified osteoarthritis, unspecified site; E83.39 Other disorders of phosphorus metabolism; D64.9 Anemia, unspecified; Z16.24 Resistance to multiple antibiotics; Z99.2 Dependence on renal dialysis; Z68.22 Body mass index [BMI] 22.0-22.9, adult
CPT/HCPCS: 82962; 83880; 84439; 97110-GP; 97530-GP; A4301; G0480; J0360; J0690; J0696; J1644; J1885; J2001; J2060; J2250; J3010; J3490; J7613; Q0163